=== PATIENT | female | born 1960 | race Caucasian/White ===

== ENCOUNTER → 2021-03-02 | Outpatient (CLI) | payer OTHER | END | disposition home or self-care (01) | LOC: LAB 12:15 → LAB SHORT 12:15 | DX: R30.9 Painful micturition, unspecified (principal) | CPT/HCPCS: 87077; 87086; 87186 ==

== ENCOUNTER 2021-06-07 08:47 | Day surgery (SDC) | payer OTHER ==
[~2021-06-07] VITALS: Ht 160 cm; Wt 107.8 kg
[~2021-06-07 08:47] MED LIST: B-12500 MC2 PO; IRON18 MG PO; VITAMIN D310 MC1 PO
--- NOTE | 2021-06-07 09:22 | NUR ---
Ambulatory in Day Surgery History, Chart, Medications and Allergies reviewed before start of procedure. Lungs clear anteriorly to Auscultation. Pre-Op teaching done. Pt verbalizes understanding. Patient States Post-Procedure ride home has been arranged.
--- NOTE | 2021-06-07 09:29 | NUR ---
06/07/21 0929 Otilia Dietz History, Chart, Medications and Allergies reviewed before start of procedure. Patient confirms NPO status and agrees with scheduled surgery. 3-LEAD EKG REVIEWED WITH PHYSICIAN PRIOR TO START OF PROCEDURE. MONITOR INTACT WITH CONTINUOUS PULSE OXIMETRY AND INTERMITTENT BP. PATIENT DETERMINED TO BE ASA APPROPRIATE FOR PROPOFOL SEDATION PRIOR TO START OF PROCEDURE BY .HURRICAINE SPRAY TO OROPHARYX.Bite Block Placed.
--- NOTE | 2021-06-07 10:57 | NUR ---
Patient States Post-Procedure ride home has been arranged. Discharge instructions reviewed with patient. Patient verbalizes understanding. Copy given to patient to take home. Discharged via wheelchair to private car for ride home.
== END 2021-06-07 22:42 | disposition home or self-care (01) ==
LOC: ORSCMMR 08:47 → ORD 10:00 → ORSCMMR 22:42
PROVIDERS: Internal Medicine Gastroenterology
PROC: 0DBE8ZX Excision of Large Intestine, Via Natural or Artificial Opening Endoscopic, Diagnostic (ICD-10-PCS; principal; 2021-06-07 10:00)
PROC: 0DB78ZX Excision of Stomach, Pylorus, Via Natural or Artificial Opening Endoscopic, Diagnostic (ICD-10-PCS; principal; 2021-06-07 10:00)
PROC: 0DB88ZX Excision of Small Intestine, Via Natural or Artificial Opening Endoscopic, Diagnostic (ICD-10-PCS; principal; 2021-06-07 10:00)
DX: D50.9 Iron deficiency anemia, unspecified (principal); R19.5 Other fecal abnormalities; T18.2XXA Foreign body in stomach, initial encounter; Z80.0 Family history of malignant neoplasm of digestive organs; F17.210 Nicotine dependence, cigarettes, uncomplicated; E66.01 Morbid (severe) obesity due to excess calories; Z68.41 Body mass index [BMI] 40.0-44.9, adult
CPT/HCPCS: 88300; 88305; 88342; A9270; J2250; J3010; J7120

== ENCOUNTER 2023-09-22 06:26 | Day surgery (SDC) | payer OTHER ==
[2023-09-22] VITALS (18 sets, daily range): BP systolic 100–144; BP diastolic 53–95
[~2023-09-22] VITALS: Ht 160 cm; Wt 94.0 kg
[~2023-09-22 06:26] MED LIST changes: +ASCO500 PO; +Acetaminophen 500 MG Tab PO SCH; +BETA.05TCA TOP; +BUPR150ER PO; +CeFAZolin Sodium 2,000 MG in NS 100 ML IV SCH; +Chlorhexidine Mouth Care 15 ML UDC MT SCH; +Lactated Ringer's 1,000 ML IV SCH; +METF500 PO; +Naprosyn500 MG PO; +OxyCODONE HCL 10 MG TABCR PO SCH; +TRIDERM28.4 GM TOP
[2023-09-22] MEDS ORDERED: NS IV SCH (06:55)
[2023-09-22] MEDS ORDERED: Ropivacaine 0.5% HCl/Pf 67.75 MG,EPINEPHrine HCL 0.25 MG,Ketorolac Tromethamine 15 MG,C... INFIL SCH (06:55)
[2023-09-22] MEDS ORDERED: TRANEXAMIC ACID IV SCH (06:55)
--- NOTE | 2023-09-22 07:27 | NUR ---
History, Chart, Medications and Allergies reviewed before start of procedure.PRE OP TEACHING DONE, LUNGS CLEAR/VOIDED JUST PRIOR TO GOING TO OR. DENTURES LEFT AT HOME
[2023-09-22] MEDS ORDERED: FentaNYL Citrate 50 MCG/ML 2 ML Injection ONE ×3 (07:28→10:28)
[2023-09-22] MEDS ORDERED: propofoL 20 ML IV ONE (08:07)
[2023-09-22] MEDS ORDERED: Rocuronium Bromide 10 MG/ML 5ML Injection IV ONE (08:08)
[2023-09-22] MEDS ORDERED: Bupivacaine 0.5% HCl 5 MG/ML 30MLVIAL ONE (08:34)
[2023-09-22] MEDS ORDERED: Ondansetron HCl 2 MG / ML 2ML Vial ONE (08:34)
[2023-09-22] MEDS ORDERED: Ketorolac Tromethamine 30mg Vial ONE (08:34)
[2023-09-22] MEDS ORDERED: Dexamethasone Sod Phos 10 MG/ML 1ML VIAL ONE (08:34)
[2023-09-22] MEDS ORDERED: HYDROmorphone HCl/Pf 1MG SYR IV PRN ×2 (08:55→10:30)
[2023-09-22] MEDS ORDERED: FentaNYL Citrate 50 MCG/ML 2 ML Injection IV PRN (09:00)
[2023-09-22] MEDS ORDERED: Albuterol 2.5 MG/3 ML VIAL INH PRN (09:00)
[2023-09-22] MEDS ORDERED: Droperidol 5 mg/2 ml Vial IV PRN (09:20)
[2023-09-22] MEDS ORDERED: HYDROmorphone HCl/Pf 1MG SYR ONE (09:41)
[2023-09-22] MEDS ORDERED: Sugammadex Sodium 200 MG/2ML SDV (100 MG/ML) ONE (09:41)
[2023-09-22] MEDS ORDERED: OxyCODONE HCL 5 MG TAB PO PRN ×2 (10:20→10:25)
[2023-09-22] MEDS ORDERED: Ondansetron HCl 2 MG / ML 2ML Vial IV PRN (10:20)
[2023-09-22] MEDS ORDERED: Promethazine HCl 25 MG Tab PO PRN (10:25)
[2023-09-22] MEDS ORDERED: DiphenhydrAMINE HCL 25 MG Cap PO PRN (10:25)
[2023-09-22] MEDS ORDERED: Bisacodyl 10 MG Supp PR PRN (10:25)
[2023-09-22] MEDS ORDERED: Magnesium Hydroxide Conc 10 ML UDC PO PRN (10:30)
[2023-09-22] MEDS ORDERED: Metoclopramide HCl 5MG / ML 2ML Vial IV PRN (10:30)
[2023-09-22] MEDS ORDERED: Lactated Ringer's 1,000 ML IV SCH (10:30)
[2023-09-22] MEDS ORDERED: Ketorolac Tromethamine 15mg Vial IV SCH (10:40)
--- NOTE | 2023-09-22 11:49 | NUR ---
PT ARRIVED TO THE UNIT FOR PACU AT 1105. PT ALERT AND ORIENTED. SHE RATES HER PAIN AT 5/10, PO PAIN MEDICATION GIVEN. PT ABLE TO MOVE ALL EXTREMITIES. PT TOLERATING SIPS OF CLEARS AND SOME YOGURT. PT EDUCATED TO USE THE CALL LIGHT. BED IN LOW POSITION.
--- NOTE | 2023-09-22 15:47 | NUR ---
PT REPORTS NUMBNESS TO HER RIGHT MEDIAL ANKLE. DR. MAR NOTIFIED AND STATED OK TO PROCEED WITH DISCHARGE AND THAT THE NUMBNESS IS LIKELY RELATED TO THE NERVE BLOCK GIVEN. PT IS ABLE TO PLANTAR AND DORSAL FLEX. DR. MAR ALSO NOTIFIED OF HEADACHE THAT HAS IMPROVED AFTER TYLENOL AND TORADOL.
[2023-09-22] MEDS ORDERED: CeFAZolin Sodium 2,000 MG in NS 100 ML IV SCH (16:00)
[2023-09-22] MEDS ORDERED: Acetaminophen 500 MG Tab PO SCH (16:00)
[2023-09-22] MEDS ORDERED: Aspir 8181 MG PO (16:16)
--- NOTE | 2023-09-22 16:58 | NUR ---
DISCHARGE PT AND HER FRIEND WERE PROVIDED WITH WRITTEN AND VERBAL DISCHARGE INSTRUCTIONS, THEY REPORTED UNDERSTANDING. PT PROVIDED WITH CLEAN DRESSINGS FOR DRESSING CHANGES. PT STATES SHE ALREADY HAS HER PRESCRIPTIONS AT HOME. AT TIME OF DISCHARGE PT STATES HER HEADACHE RESOLVED AND N/T TO R MEDIAL ANKLE ALSO RESOLVED. PT CLEARED THERAPY. VSS. PT WAS ABLE TO AMBULATE, VOID AND TOLERATED PO PRIOR TO DISCHARGE. PT ASSISTED OUT IN W/C AT 1654.
[2023-09-22] MEDS ORDERED: Docusate Sodium 100 MG Cap PO SCH (21:00)
[2023-09-23] MEDS ORDERED: Aspirin 81 MG Chew PO SCH (09:00)
== END 2023-09-22 16:54 | disposition home or self-care (01) ==
LOC: SURS 06:26 → ORSCMMR 06:26 → ORD 07:30 → SURS 10:47 → ORSCMMR 16:54
PROVIDERS: Orthopaedic Surgery
PROC: 0SRC0JA Replacement of Right Knee Joint with Synthetic Substitute, Uncemented, Open Approach (ICD-10-PCS; principal; 2023-09-22 07:30)
DX: M17.11 Unilateral primary osteoarthritis, right knee (principal); J44.9 Chronic obstructive pulmonary disease, unspecified; Z87.891 Personal history of nicotine dependence; E66.9 Obesity, unspecified; Z68.36 Body mass index [BMI] 36.0-36.9, adult; Z98.84 Bariatric surgery status
CPT/HCPCS: 73560-RT; 97110; 97116; 97162; 97530; A9270; C1776; J0171; J0690; J0735; J1100; J1170; J1885; J2405; J2704; J2795; J3010; J7120

== ENCOUNTER → 2024-02-08 | Outpatient (CLI) | payer OTHER ==
[~2024-02-08] MED LIST changes: -Acetaminophen 500 MG Tab PO SCH; +Aspir 8181 MG PO; -CeFAZolin Sodium 2,000 MG in NS 100 ML IV SCH; -Chlorhexidine Mouth Care 15 ML UDC MT SCH; -Lactated Ringer's 1,000 ML IV SCH; -OxyCODONE HCL 10 MG TABCR PO SCH
[2024-02-10 14:40] LABS: APTIMA MEDIA TYPE Urine; C. TRACHOMATIS BY TMA Negative (Negative); N. GONORRHOEAE BY TMA Negative (Negative); SPECIMEN SOURCE Urine
== END ==
LOC: LAB 13:12 → LAB SHORT 13:12
PROVIDERS: General Practice
DX: N39.0 Urinary tract infection, site not specified (principal)
CPT/HCPCS: 87077; 87086; 87186; 87491; 87591

== ENCOUNTER 2024-03-19 10:07 | Day surgery (SDC) | payer OTHER ==
[2024-03-19] VITALS (11 sets, daily range): BP systolic 91–122; BP diastolic 53–69
[~2024-03-19] VITALS: Ht 157.5 cm; Wt 83.4 kg
[~2024-03-19 10:07] MED LIST changes: +MULVITA PO
[2024-03-19] MEDS ORDERED: Ropivacaine 0.5% HCl/Pf 123.125 MG,EPINEPHrine HCL 0.25 MG,Ketorolac Tromethamine 15 MG... INFIL SCH (10:20)
[2024-03-19] MEDS ORDERED: Chlorhexidine Mouth Care 15 ML UDC MT SCH (10:20)
[2024-03-19] MEDS ORDERED: Tranexamic Acid 100 ML IV SCH (10:20)
[2024-03-19] MEDS ORDERED: OxyCODONE HCL 10 MG TABCR PO SCH (10:20)
[2024-03-19] MEDS ORDERED: Lactated Ringer's 1,000 ML IV SCH ×2 (10:20→10:50)
[2024-03-19] MEDS ORDERED: CeFAZolin Sodium 2,000 MG in NS 100 ML IV SCH ×2 (10:20→20:30)
[2024-03-19] MEDS ORDERED: Acetaminophen 500 MG Tab PO SCH ×2 (10:20→16:00)
[2024-03-19] MEDS ORDERED: IBU800 MG PO (10:31)
[2024-03-19] MEDS ORDERED: FLU VACC TS2024-25(6MOS UP)/PF 45 MCG/0.5 ML SYRINGE IM SCH (10:45)
[2024-03-19] MEDS ORDERED: DiphenhydrAMINE HCL 25 MG Cap PO PRN (10:45)
[2024-03-19] MEDS ORDERED: Bisacodyl 10 MG Supp PR PRN (10:50)
[2024-03-19] MEDS ORDERED: propofoL 20 ML IV ONE ×2 (10:50→13:13)
[2024-03-19] MEDS ORDERED: Magnesium Hydroxide Conc 10 ML UDC PO PRN (10:50)
[2024-03-19] MEDS ORDERED: HYDROmorphone HCl/Pf 1MG SYR IV PRN (10:50)
[2024-03-19] MEDS ORDERED: Metoclopramide HCl 5MG / ML 2ML Vial IV PRN (10:50)
[2024-03-19] MEDS ORDERED: Promethazine HCl 25 MG Tab PO PRN (10:55)
[2024-03-19] MEDS ORDERED: OxyCODONE HCL 5 MG TAB PO PRN ×2 (10:55)
[2024-03-19] MEDS ORDERED: Ondansetron HCl 2 MG / ML 2ML Vial IV PRN (10:55)
--- NOTE | 2024-03-19 10:57 | NUR ---
History, Chart, Medications and Allergies reviewed before start of procedure. Patient confirms NPO status and agrees with scheduled surgery. Patient states she left her dentures at home.
--- NOTE | 2024-03-19 10:58 | NUR ---
REPORTS HAVING DIARRHEA TODAY AND ADMITS TO EATING GLUTEN LAST NIGHT THAT CAUSES DIARRHEA. WILL NOTIFIY DR MAR.
[2024-03-19] MEDS ORDERED: Midazolam HCl 1MG / ML 2ML Vial ONE (11:54)
[2024-03-19] MEDS ORDERED: Midazolam HCl 1MG / ML 2ML Vial IV SCH (11:55)
[2024-03-19] MEDS ORDERED: propofoL 50 ML IV ONE (12:23)
[2024-03-19] MEDS ORDERED: Phenylephrine HCl 100 MCG/ML-NS 10MLSYR (1MG/10ML) ONE (12:56)
[2024-03-19] MEDS ORDERED: ePHEDrine Sulfate 50 MG/ML 1ML Injection ONE (13:08)
--- NOTE | 2024-03-19 16:43 | NUR ---
PT FOUND ON GROUND NEXT TO BED, REPORTS SHE DIDN'T FALL BUT HAD MOVED HERSELF TO THE SIDE OF THE BED TO DANGLE THEN SLIPPED OFF. LANDED ON HER BOTTOM. DENIES PAIN & WAS LAUGHING OUT LOUD. GB APPLIED & 4 PERSON ASSIST TO BSC. UNABLE TO VOID & DESPITE CONTINUED EDUCATION ASSISTED SELF TO BED BY HERSELF. BED ALARM TURNED ON.
[2024-03-19] MEDS ORDERED: Ketorolac Tromethamine 15mg Vial IV SCH (18:00)
[2024-03-19] MEDS ORDERED: ASPI81CH PO (18:13)
--- NOTE | 2024-03-19 18:43 | NUR ---
DISCHARGE PT WANTS TO GO HOME. HAD PT AMBULATE w/ THIS RN, STABLE GAIT. TO BATHROOM, ABLE TO VOID. EATING & DRINKING. PAIN WELL CONTROLLED. POLAR PACK & DRSGS SENT. ESCORTED OUT VIA WC.
[2024-03-19] MEDS ORDERED: Docusate Sodium 100 MG Cap PO SCH (21:00)
[2024-03-20] MEDS ORDERED: Multivitamins 1 Tab PO SCH (09:00)
[2024-03-20] MEDS ORDERED: Aspirin 81 MG Chew PO SCH (09:00)
== END 2024-03-19 18:37 | disposition home or self-care (01) ==
LOC: ORSCMMR 10:07 → ORD 11:00 → SURS 14:14 → ORSCMMR 18:37
PROVIDERS: Orthopaedic Surgery
PROC: 0SRD0JA Replacement of Left Knee Joint with Synthetic Substitute, Uncemented, Open Approach (ICD-10-PCS; principal; 2024-03-19 11:00)
DX: M17.12 Unilateral primary osteoarthritis, left knee (principal); Z96.651 Presence of right artificial knee joint; Z98.84 Bariatric surgery status; Z87.891 Personal history of nicotine dependence; E66.9 Obesity, unspecified; Z68.33 Body mass index [BMI] 33.0-33.9, adult
CPT/HCPCS: 73560-LT; A9270; C1776; J0171; J0690; J0735; J1885; J2250; J2371; J2704; J2795; J7120

== ENCOUNTER 2024-06-28 12:57 | Emergency (ER) | payer OTHER ==
[~2024-06-28] VITALS: Ht 160 cm; Wt 72.6 kg
[~2024-06-28 12:57] MED LIST changes: +ASPI81CH PO; +IBU800 MG PO
[2024-06-28 17:16] LABS: BASOPHILS ABSOLUTE AUTO 0.07 K/mm3 (0.00-0.23); BASOPHILS PERCENT AUTO 1 % (0-2); EOSINOPHILS ABSOLUTE AUTO 0.36 K/mm3 (0.00-0.68); EOSINOPHILS PERCENT AUTO 3 % (0-6); Hematocrit 40.6 % (33.0-51.0); Hemoglobin 13.5 g/dL (11.5-16.0); IMMATURE GRAN ABSOLUTE AUTO 0.03 K/mm3 (0.00-0.10); IMMATURE GRAN PERCENT AUTO 0 % (0-1); LYMPHOCYTES PERCENT AUTO 27 % (21-46); MONOCYTES ABSOLUTE AUTO 0.83 K/mm3 (0.16-1.47); MONOCYTES PERCENT AUTO 8 % (4-13); Mean Corpuscular HGB 27.1 pg (26.0-34.0); Mean Corpuscular HGB Conc 33.3 g/dL (31.5-36.5); Mean Corpuscular Volume 81 fL (80-100); Mean Platelet Volume 10.1 fL (9.1-12.4); NEUTROPHILS PERCENT AUTO 61 % (41-73); Platelet Count 441 K/mm3 (150-400); RDW Coefficient Variation 14.8 % (11.7-14.2); RDW Standard Deviation 43.8 fL (35.1-46.3); Red Blood Cell Count 4.99 M/mm3 (3.80-5.20); White Blood Cell Count 10.99 K/mm3 (4.00-11.30)
[2024-06-28 17:32] LABS: Albumin, Blood 3.3 g/dL (3.4-5.0); Albumin/Globulin Ratio 0.8 (0.8-1.8); Bilirubin, Total 0.3 mg/dL (0.1-1.0); Bun/Creatinine Ratio 24.7 (12.0-20.0); Calcium, Blood 9.5 mg/dL (8.5-10.1); Creatinine, Blood 0.49 mg/dL (0.40-1.00); Globulin, Blood 4.2 g/dL (2.2-4.0); Potassium, Blood 3.6 mmol/L (3.5-5.5); Total Protein, Blood 7.5 g/dL (6.4-8.2)
[2024-06-28] MEDS ORDERED: Aspirin 325 MG Tab PO ONE (19:45)
[2024-06-28] MEDS ORDERED: Clopidogrel Bisulfate 75 MG Tab PO ONE (20:30)
[2024-06-28] MEDS ORDERED: ASPI81CH PO (20:31)
[2024-06-28] MEDS ORDERED: CLOP75 PO (20:31)
[2024-06-28 20:45] VITALS: BP 130/74
== END 2024-06-28 20:44 | disposition home or self-care (01) ==
LOC: ER 12:57
PROVIDERS: Student in an Organized Health Care Education/Training Program
DX: G45.9 Transient cerebral ischemic attack, unspecified (principal); M79.602 Pain in left arm; Z88.8 Allergy status to other drugs, medicaments and biological substances; Z79.899 Other long term (current) drug therapy; Z79.82 Long term (current) use of aspirin; F17.210 Nicotine dependence, cigarettes, uncomplicated
CPT/HCPCS: 70450; 70496; 70498; 80053; 83690; 84484; 85025; 93005; 93010; 99284-25; A9270; Q9967

== ENCOUNTER → 2024-08-16 | Outpatient (CLI) | payer OTHER ==
[~2024-08-16] MED LIST changes: +CLOP75 PO
== END ==
LOC: LAB 15:25 → LAB SHORT 15:25
DX: N39.0 Urinary tract infection, site not specified (principal)
CPT/HCPCS: 87077; 87086; 87186

== ENCOUNTER → 2025-02-06 | Outpatient (CLI) | payer OTHER | LOC: LAB SHORT 13:35 → LAB 13:35 | DX: N39.0 Urinary tract infection, site not specified (principal) | CPT/HCPCS: 87077; 87086; 87186 ==

== ENCOUNTER 2025-06-07 16:06 | Emergency (ER) | payer OTHER ==
[~2025-06-07] VITALS: Ht 160 cm; Wt 74.8 kg
[2025-06-07 16:46] LABS: BASOPHILS ABSOLUTE AUTO 0.07 K/mm3 (0.00-0.23); BASOPHILS PERCENT AUTO 1 % (0-2); EOSINOPHILS ABSOLUTE AUTO 0.54 K/mm3 (0.00-0.68); EOSINOPHILS PERCENT AUTO 5 % (0-6); Hematocrit 40.8 % (33.0-51.0); Hemoglobin 13.1 g/dL (11.5-16.0); IMMATURE GRAN ABSOLUTE AUTO 0.03 K/mm3 (0.00-0.10); IMMATURE GRAN PERCENT AUTO 0 % (0-1); LYMPHOCYTES ABSOLUTE AUTO 3.69 K/mm3 (0.84-5.20); LYMPHOCYTES PERCENT AUTO 32 % (21-46); MONOCYTES ABSOLUTE AUTO 0.78 K/mm3 (0.16-1.47); MONOCYTES PERCENT AUTO 7 % (4-13); Mean Corpuscular HGB Conc 32.1 g/dL (31.5-36.5); Mean Corpuscular Volume 83 fL (80-100); NEUTROPHILS ABSOLUTE AUTO 6.48 K/mm3 (1.96-9.15); NEUTROPHILS PERCENT AUTO 56 % (41-73); NRBC ABSOLUTE 0.00 K/mm3 (0.00-0.02); NRBC Auto 0.0 /100 WBC (0.0-0.2); Platelet Count 419 K/mm3 (150-400); RDW Coefficient Variation 14.3 % (11.7-14.2); RDW Standard Deviation 43.0 fL (35.1-46.3)
[2025-06-07 17:06] LABS: Alanine Aminotransfer (ALT/SGP 21.0 U/L (12-78); Albumin, Blood 3.7 g/dL (3.4-5.0); Albumin/Globulin Ratio 1.0 (0.8-1.8); Anion Gap 6.0 mmol/L (3-11); Aspartate Aminotrans (AST/SGOT 20.0 U/L (12-37); Bilirubin, Total 0.3 mg/dL (0.1-1.0); Blood Urea Nitrogen 17.0 mg/dL (8-24); CO2, Blood 26.0 mmol/L (21-32); Calcium, Blood 8.7 mg/dL (8.5-10.1); Chloride, Blood 108.0 mmol/L (98-108); Creatinine, Blood 0.58 mg/dL (0.40-1.00); Globulin, Blood 3.7 g/dL (2.2-4.0); Glucose, Blood 95.0 mg/dL (70-99); Potassium, Blood 4.1 mmol/L (3.5-5.5); Sodium, Blood 136.0 mmol/L (136-145); Total Protein, Blood 7.4 g/dL (6.4-8.2)
[2025-06-07] MEDS ORDERED: NS 1,000 ML IV SCH (17:30)
[2025-06-07] MEDS ORDERED: FAMO20 PO (19:12)
[2025-06-07] MEDS ORDERED: ONDA4ODT MM (19:12)
[2025-06-07] MEDS ORDERED: RX Prepack 2 Tabs Ondansetron ODT 4MG UD ONE (19:15)
[2025-06-07 19:30] VITALS: BP 125/87
== END 2025-06-07 19:34 | disposition home or self-care (01) ==
LOC: ER 16:06
PROVIDERS: Student in an Organized Health Care Education/Training Program
DX: K29.70 Gastritis, unspecified, without bleeding (principal); K21.9 Gastro-esophageal reflux disease without esophagitis; E86.0 Dehydration; R00.1 Bradycardia, unspecified; D72.829 Elevated white blood cell count, unspecified; F17.210 Nicotine dependence, cigarettes, uncomplicated
CPT/HCPCS: 71046; 71260; 80053; 84484; 85025; 85379; 93005; 93010; 96361; 96374-59; 99285-25; A9270; J7030; Q9967

== ENCOUNTER → 2025-06-10 | Outpatient (CLI) | payer OTHER ==
[~2025-06-10] MED LIST changes: +FAMO20 PO; +ONDA4ODT MM
== END | disposition home or self-care (01) ==
LOC: LAB SHORT 13:22 → LAB 13:22
DX: N39.0 Urinary tract infection, site not specified (principal); R30.0 Dysuria
CPT/HCPCS: 87077; 87086; 87186